=== PATIENT | female | born 1995 | race Caucasian/White ===

== ENCOUNTER → 2025-02-21 | Outpatient (CLI) | payer MEDICAID, SELFPAY ==
[2025-02-21 12:59] LABS: Absolute Lymphocyte Count 1.77 X10^3/uL (0.83-4.51); Absolute Neutrophil Count 3.2 X10^3/uL (2.0-7.7); Basophil# 0.09 X10^3/uL; Basophil% 1.5 % (0-1); Eosinophil# 0.22 X10^3/uL; Eosinophils% 3.7 % (0-5); Hematocrit 39.1 % (37-47); Hemoglobin 12.9 g/dL (12.0-15.0); Lymphocyte # 1.77 X10^3/ul (0.83-4.51); Lymphocyte % 29.7 % (19-41); Mean Corpuscular Hgb 31.6 pg (27.0-32.0); Mean Corpuscular Volume 95.8 fL (81-99); Mean Platelet Vol. 10.1 fl (6.2-12.0); Monocyte# 0.64 X10^3/uL; Monocyte% 10.8 % (0-10); NRBC Flagged by Analyzer 0 % (0-5); Neutrophil % 53.8 % (47-70); Platelet Count 387 K/mm3 (150-450); RBC Distribution Width CV 12.5 % (11.6-14.6); RBC Distribution Width SD 43.8 fl (35.1-43.9); Red Blood Count 4.08 M/mm3 (4.2-5.4)
[2025-02-21 13:15] LABS: Erythrocyte Sedimentation Rate < 1 mm/hr (0-30)
[2025-02-21 14:35] LABS: CRP < 3.00 mg/L (0.0-3.0)
== END | disposition home or self-care (01) ==
LOC: LAB 12:17 → PAVLAB 12:35
PROVIDERS: PCP Nurse Practitioner Family; Referring Provider Student in an Organized Health Care Education/Training Program; Visit Provider Student in an Organized Health Care Education/Training Program
DX: K51.90 Ulcerative colitis, unspecified, without complications (principal)
CPT/HCPCS: 36415; 85025; 85652; 86140

== ENCOUNTER 2025-02-22 11:32 | Day surgery (SDC) | payer MEDICAID, SELFPAY ==
[2025-02-22] VITALS (7 sets, daily range): BP systolic 101–130; BP diastolic 69–88; PULSE 53–90; RESP 16; TEMP 36.2–36.6; O2SAT 99–100; BMI 21.4
[2025-02-22] MEDS: Lactated Ringers 1,000 ML 15 ML IV (11:57)
--- NOTE | 2025-02-22 12:06 | PCM.PRE.AN2 ---
ASA Classification* ASA Classification ASA Classification: 2 Assessment & Plan Anesthesia* Anesthesia Assessment Anesthesia Assessment: Discussed sedation and/or anesthesia options, risks, benefits, and alternatives with patient/parents/legal guardian/POA. Questions invited. The patient/parents/legal guardian/POA seems to understand and agrees to proceed with anesthesia plan. Reviewed the physical assessment, medical history, allergy history and patient home medications list prior to surgery/procedure/anesthetic and documented any changes. Performed airway and anesthesia risk assessments. Anesthesia Type Anesthesia Type: MAC History Source History Obtained from:: Patient and Chart Anesthesia Focused Assessment* Temperature: 97.8 F Pulse Rate: 82 Blood Pressure: 109/88 Respiratory Rate: 16 Pulse Ox: 100 Oxygen Delivery Method: Room Air Airway Assessment Mouth opens: >3 cm Mallampati Score: II Teeth Condition: Chipped/Broken (Patient has a left upper molar which is broken off.) Neck Range of motion (ROM): Full ROM Focused Labs Anesthesia Preop lab: CBC WBC 6.0 K/mm3 (4.4-11.0) 02/21/25 12:41 02/21/25 RBC 4.08 M/mm3 (4.2-5.4) L 02/21/25 12:41 02/21/25 Hgb 12.9 g/dL (12.0-15.0) 02/21/25 12:41 02/21/25 Hct 39.1 % (37-47) 02/21/25 12:41 02/21/25 Plt Count 387 K/mm3 (150-450) 02/21/25 12:41 02/21/25 CHEMISTRY COAG Pre-Assessment Diagnosis/Proposed Procedure Planned Operative Procedure(s): EGD/CSCOPE Anesthesia History Anesthesia History - bi solutions architect: Anesthesia History - bi solutions architect Hx Hospitalization No 02/18/25 11:54 Any Problems With Anesthesia Yes: AWAKENED DURING 02/18/25 11:54 PROCEDURE Cholinesterase deficiency No 02/18/25 11:54 You/Your Family Experience No 02/18/25 11:54 fever (hyperthermia) with Relationship Recent Exposure to Contagious No 02/22/25 11:58 Disease Does patient have nerve No 02/18/25 11:54 stimulator Patient instructed to have device shut off --Does patient have Pacemaker No 02/22/25 11:58 or ICD? When Was Last Pacemaker Check QUESTION #4 FULL TEXT: You/Your Family Experience fever (hyperthermia) with Anesthesia Last Oral Intake Last Oral intake: Last Oral Intake NPO since 04:00 02/22/25 11:58 Meds taken in AM with sips of No 02/22/25 11:58 water? Meds patient instructed to take am of surgery Any additional information?: Yes NPO since: 04:00 (Patient has some water at 4 AM.) Meds taken in AM with sips of water?: No PONV PONV - bi solutions architect: PONV - bi solutions architect Female Yes 02/18/25 11:54 HX of Motion Sickness No 02/18/25 11:54 HX of N/V After Surgery No 02/18/25 11:54 Non-Smoker Yes 02/18/25 11:54 Duration of Surgery greater No 02/18/25 11:54 than 60 minutes Number of Risk Factors 2 02/18/25 11:54 PONV Score Moderate Risk 02/18/25 11:54 Height & Weight Height & Weight: Anesthesia: Height & Weight Height 5 ft 8 in 02/22/25 11:58 Weight: 64 kg 02/22/25 11:58 Body Mass Index (BMI) 21.4 02/22/25 11:58 Respiratory Assessment Respiratory Assessment - bi solutions architect: Respiratory Tract Infection Hx - bi solutions architect Hx Respiratory Tract Infection No 02/18/25 11:54 STOP Sleep Apnea STOP Sleep Apnea - bi solutions architect: STOP Sleep Apnea - bi solutions architect Hx Hypertension No 02/18/25 11:54 Hx Sleep Apnea No 02/18/25 11:54 CPAP BIPAP Do you snore loudly (louder No 02/18/25 11:54 than talking or can be heard Do you often feel tired/ Yes 02/18/25 11:54 fatigued/ sleepy during daytime? Has anyone observed you stop No 02/18/25 11:54 breathing during sleep? STOP Results Negative 02/18/25 11:54 QUESTION #5 FULL TEXT : Do you snore loudly (louder than talking or can be heard through closed doors)? Tobacco Use History Tobacco Use History - bi solutions architect: Tobacco Use History - bi solutions architect Tobacco Use Smoking Status Former smoker 02/18/25 11:54 Hx Tobacco Use No 02/18/25 11:54 Years Smoking Packs Smoked per Day Smoking Cessation Date was Yes - quit smoking within 15 02/18/25 11:54 within the last 15 years years Hx Smoking Cessation Date Hx Smoking Cessation No 02/18/25 11:54 Counseling Hematologic Medial History Hematologic Hx - bi solutions architect: Hematologic Medical Hx - research and development engineer Hx of Blood Transfusion No 02/18/25 11:54 Hx of Transfusion in last 3 No 02/18/25 11:54 Months Date of Last Transfusion (if within last 3 months) Ever experience any problems No 02/18/25 11:54 with transfusion(s)? Specify any problems Hx of Preganancy in last 3 No 02/18/25 11:54 Months Nurse Filling Out Transfusion DSCHRIBER 02/18/25 11:54 & Questions: Date: 02/18/25 02/18/25 11:54 Time: 11:55 02/18/25 11:54 Patient unable to answer at this time (ie. confused, unrespo /Reproduction History /Reproductive History - bi solutions architect: /Reproductive Hx- bi solutions architect Hx Now No 02/18/25 11:54 Gestational Age (in weeks): EDC: Hx Hx Para Hx Section SAB No 02/18/25 11:54 Active Medications Active Medications: Current Medications Generic Name Dose Route Start Last Admin Trade Name Freq PRN Reason Stop Dose Admin Lactated Ringer's 1,000 mls @ 15 mls/hr 02/22/25 11:45 02/22/25 11:57 IV 15 mls/hr .Q48H ELVIN Administration PFSH Medical History Anxiety History of steroid therapy Low iron Easy bruising Restless legs Back pain Injury of back Syncope Dietary restriction History of IBS Ulcerative proctitis Ulcerative colitis Gastric reflux Leg cramps Former smoker Chest pain Home Medications ?Medication ?Instructions ?Recorded ?Last Taken ?Type dextroamphetamine-amphetamine 10 30 mg PO BID 03/17/24 Unknown History mg tablet (Adderall) fexofenadine 180 mg tablet 180 mg PO DAILY 02/18/25 Unknown History vedolizumab 300 mg intravenous 300 mg IV .Q6 WEEKS 02/18/25 02/10/25 History solution (Entyvio) Allergy/AdvReac Type Severity Reaction Status Date / Time clindamycin Allergy Intermediate Nausea Verified 02/22/25 11:55 tenapanor (From Ibsrela) Allergy Intermediate Other Verified 02/22/25 11:55 doxycycline Allergy Hives Verified 02/22/25 11:55 tofacitinib (From Xeljanz) Allergy Hives Verified 02/22/25 11:55 codeine AdvReac itchiness Verified 02/22/25 11:55 Surgical History Hx of oral surgery H/O tubal ligation Social History household members: family Smoking Status: Former smoker quit date: 11/27/17 alcohol intake: never Review of Systems (Anesthesia) ROS Narrative System reviewed and no additional complaints, except as documented.
--- NOTE | 2025-02-22 12:30 | EGD_PTH ---
PATIENT: TRENT ZULUAGA LOC: EN U#:[id number] AGE/SX: 29/F ROOM: RE02/22/[address]: Dr. Anish Anguiano DO : 1995 BED: DIS: 02/22/2025 SPEC #: [id number] RECD: 02/23/25 08:52 STATUS: NANO RECecy #: [id number] KAREN: 02/22/25 12:[address]: Anish Anguiano DEPT: SURGICAL PATHOLOGY RECD BY: Luis Madrigal ENTERED: 02/23/25 11:01 SP TYPE: EGD BIOPSY CARMELO DR: SAWYER WILKINS, FIRE BATTALION CHIEF-C Tissues: Esophagus, NOS Rectum, NOS Procedures: Surgery Specimen Level IV HEADER OPERATION: Colonoscopy with biopsy, EGD with biopsy PRE-OP DIAGNOSIS: Colitis, ulcerative TISSUE SUBMITTED: Distal esophagus biopsy, Anal rectal junction biopsy MICROSCOPIC DIAGNOSIS A. Esophagus, distal, biopsy: * Benign squamous epithelium * Oxyntocardiac type mucosa with mild chronic inflammation, negative for goblet cells B. Anal-rectal junction, biopsy: * Mild active chronic colitis, negative for dysplasia COMMENT The patient's clinical history of ulcerative colitis is noted MICROSCOPIC DESCRIPTION Slides are reviewed. GROSS DESCRIPTION A. Received in formalin in a container labeled with the patient's name, date of , and distal esophagus biopsy are 2 madrid-pink fragments of mucosal tissue measuring 0.4 x 0.3 x 0.2 cm and 0.6 x 0.3 x 0.2 cm. Submitted in toto in A1. B. Received in formalin in a container labeled with the patient's name, date of , and anal rectal junction biopsy are 3 madrid-pink fragments of mucosal tissue each measuring 0.3 x 0.3 x 0.3 cm. Submitted in toto in B1. [facility] 02-23-2025 CPT:65483s1
--- NOTE | 2025-02-22 13:01 | PCM.HP.STD ---
HPI - General General Date of Admission: 02/22/25 Date of Service: 02/22/25 Chief Complaint: Abdominal pain and also colitis HPI Narrative TRENT ZULUAGA, is a 29 F who presents for the evaluation of abdominal pain and surveillance of ulcerative colitis. Pt was diagnosed with UC in 2018 after struggling for years with constipation, blood and mucous in her stool. She was put on steroids and suppositories. She is now on Entyvio since February 2024. SHe feels this has helped with some aspects of her symptoms but not all. She continues to have burning left sided abd pain intermittently that lasts an hour. She is constipated with a bm once every 1-2 weeks. She has tried Ibsrela but felt it led to psychosis so she discontinued. Last colonoscopy in Nov 2023 showing active pancolitis with ulceration and cobblestoning. She is also having heartburn. She was unable to have an EGD due to gagging in the past. [facility] Medical History Anxiety History of steroid therapy Low iron Easy bruising Restless legs Back pain Injury of back Syncope Dietary restriction History of IBS Ulcerative proctitis Ulcerative colitis Gastric reflux Leg cramps Former smoker Chest pain Home Medications ?Medication ?Instructions ?Recorded ?Last Taken ?Type dextroamphetamine-amphetamine 10 30 mg PO BID 03/17/24 Unknown History mg tablet (Adderall) fexofenadine 180 mg tablet 180 mg PO DAILY 02/18/25 Unknown History vedolizumab 300 mg intravenous 300 mg IV .Q6 WEEKS 02/18/25 02/10/25 History solution (Entyvio) Allergy/AdvReac Type Severity Reaction Status Date / Time clindamycin Allergy Intermediate Nausea Verified 02/22/25 11:55 tenapanor (From Ibsrela) Allergy Intermediate Other Verified 02/22/25 11:55 doxycycline Allergy Hives Verified 02/22/25 11:55 tofacitinib (From Xeljanz) Allergy Hives Verified 02/22/25 11:55 codeine AdvReac itchiness Verified 02/22/25 11:55 Surgical History Hx of oral surgery H/O tubal ligation Social History household members: family Smoking Status: Former smoker quit date: 11/27/17 alcohol intake: never ROS Constitutional Constitutional: Denies fatigue, fever(s), poor appetite, weight gain or weight loss Gastrointestinal Gastrointestinal: Denies belching, bloating, change in bowel habits, change in stool character, chewing difficulty, coffee ground emesis, constipation, cramping, diarrhea, dyspepsia, dysphagia, early satiety, excessive flatus, fecal incontinence, heartburn, hematemesis, hematochezia, hemorrhoids, loose stools, melena, nausea, odynophagia, rectal bleeding, tenesmus, vomiting or weight changes Vital Signs Vital Signs Vital Signs: 02/22/25 11:58 02/22/25 11:58 02/22/25 12:14 Temperature 97.8 F 97.8 F Temperature Source Temporal Pulse Rate 82 82 Respiratory Rate 16 16 Respiratory Pattern Normal Blood Pressure 109/88 H 109/88 H Blood Pressure Mean 95 Blood Pressure Source Monitor Blood Pressure Position Semi-Fowlers Blood Pressure Location Left Arm Pulse Ox 100 100 Oxygen Delivery Method Room Air Room Air Weight Weight: 141 lb 1.533 oz Body Mass Index (BMI) 21.4 Physical Exam Const alert, oriented x3, no apparent distress and healthy appearing General Appearance: cooperative GI normal to inspection, nondistended, normoactive bowel sounds, soft to palpation, non-tender and non-distended Percussion: normal to percussion Rectal Exam: deferred Assessment & Plan Assessment/Plan (1) Colitis, ulcerative: PLAN: Assessment and Plan Assessment and Plan (1) Colitis, ulcerative: Status: Acute Plan: Pt is a 29 yo female pt here today for evaluation of UC. Pt was diagnosed in 2018 after colonoscopy showing pancolitis. She has been on a myriad of medications and started on Entyvio in February 2024. She feels this has helped with the blood in mucous. SHe continues to have abd pain and constipation. She will undergo EGD and colonoscopy to assess if treatment is sufficient. I ordered CBC, ESR, CRP and calprotectin. For her constipation, she will trial samples of Linzess 72 mcg daily. -Colonoscopy and EGD -CBC -CRP and ESR -Calprotectin -Trial Linzess
--- NOTE | 2025-02-22 13:52 | OP.EGD_ITS ---
Patient Name: Lynsey Lynne Procedure Date: 02/22/2025 1:07 PM Date of : 1995 Age: 29 Procedure: Upper GI endoscopy Indications: Epigastric abdominal pain Providers: Anish Agnuiano DO Referring MD: Andrea Enriquez Medicines: Monitored Anesthesia Care Patient Profile: This is a 29 year old female. Refer to note in patient chart for documentation of history and physical. Patient has symptoms of chronic abdominal cramping and chronic epigastric abdominal pain. Complications: No immediate complications. Procedure: Pre-Anesthesia Assessment: - Prior to the procedure, a History and Physical was performed, and patient medications and allergies were reviewed. The patient is competent. The risks and benefits of the procedure and the sedation options and risks were discussed with the patient. All questions were answered and informed consent was obtained. Patient identification and proposed procedure were verified by the physician in the pre-procedure area. Mental Status Examination: alert and oriented. Airway Examination: normal oropharyngeal airway and neck mobility. Respiratory Examination: clear to auscultation. CV Examination: normal. Prophylactic Antibiotics: The patient does not require prophylactic antibiotics. Prior Anticoagulants: The patient has taken no anticoagulant or antiplatelet agents except for NSAID medication. ASA Grade Assessment: II - A patient with mild systemic disease. After reviewing the risks and benefits, the patient was deemed in satisfactory condition to undergo the procedure. The anesthesia plan was to use monitored anesthesia care (MAC). Immediately prior to administration of medications, the patient was re-assessed for adequacy to receive sedatives. The heart rate, respiratory rate, oxygen saturations, blood pressure, adequacy of pulmonary ventilation, and response to care were monitored throughout the procedure. The physical status of the patient was re-assessed after the procedure. After obtaining informed consent, the endoscope was passed under direct vision. Throughout the procedure, the patient's blood pressure, pulse, and oxygen saturations were monitored continuously. The Colonoscope was introduced through the mouth, and advanced to the third part of the duodenum. Small bowel enteroscopy was deemed necessary. The upper GI endoscopy was accomplished without difficulty. The patient tolerated the procedure well. Scope In: 1:17:46 PM Scope Out: 1:23:01 PM Total Procedure Duration Time 0 hours 5 minutes 15 seconds Findings: The Z-line was irregular and was found 40 cm from the incisors. Biopsies were taken with a cold forceps for histology. Verification of patient identification for the specimen was done. No gross lesions were noted in the stomach. The examined duodenum was normal. Impression: - Z-line irregular, 40 cm from the incisors. Biopsied. - No gross lesions in the stomach. - Normal examined duodenum. Recommendation: - Continue present medications. Procedure Code(s): --- Professional --- 16258, Small intestinal endoscopy, enteroscopy beyond second portion of duodenum, not including ileum; with biopsy, single or multiple CPT copyright 2021 [employer] [place] [employer]. All rights reserved. The codes documented in this report are preliminary and upon review assistant review may be revised to meet current compliance requirements. Anish Anguiano DO 02/22/2025 1:52:10 PM This report has been signed electronically. Number of Addenda: 0 Note Initiated On: 02/22/2025 1:07 PM
--- NOTE | 2025-02-22 13:52 | OP.CCLET_ITS ---
02/22/2025 Andrea Enriquez Re : Upper GI endoscopy procedure for Lynsey Powersr Jermaine This procedure was performed on Saturday, February 22, 2025. My impressions and recommendations are as follows: Impressions : - Z-line irregular, 40 cm from the incisors. Biopsied. - No gross lesions in the stomach. - Normal examined duodenum. Recommendations : - Continue present medications. My findings are described in the full procedure note, which is enclosed. If I can be of further assistance, please feel free to contact me at . Sincerely, Anish Anguiano, 02/22/2025 1:52:10 PM This report has been signed electronically.
--- NOTE | 2025-02-22 13:55 | PCM.POST.ANE ---
Anesthesia: Postop Eval I Current Vital Signs Temperature: 97.1 F Pulse Rate: 61 Blood Pressure: 117/80 Respiratory Rate: 16 Pulse Ox: 100 Oxygen Delivery Method: Room Air Assessment Airway patent: Yes Spontaneous unlabored respirations: Yes Mental status: Asleep nausea: No Vomiting: No Anesthesia Complication: No Fluid Hydration Crystalloid volume administer (ml): 900 Total IV fluid infused: 900 Progress Note Anesthesia document: Postop Eval 1 completed: Yes
--- NOTE | 2025-02-22 13:58 | OP.CCLET_ITS ---
02/22/2025 Andrea Enriquez Re : Colonoscopy procedure for Lynsey Dean This procedure was performed on Saturday, February 22, 2025. My impressions and recommendations are as follows: Impressions : - Preparation of the colon was fair. - Mild (Gonzalez Score 1) ulcerative colitis, improved since the last examination. Biopsied. - Stool in the transverse colon, at the hepatic flexure, in the ascending colon and in the cecum. - The examined portion of the ileum was normal. Recommendations : - Discharge patient to home. - Resume previous diet. - Continue present medications. - Await pathology results. - Repeat colonoscopy for surveillance based on pathology results. My findings are described in the full procedure note, which is enclosed. If I can be of further assistance, please feel free to contact me at . Sincerely, Anish Anguiano, 02/22/2025 1:58:18 PM This report has been signed electronically.
--- NOTE | 2025-02-22 13:58 | OP.COLON_ITS ---
Patient Name: Lynsey Lynne Procedure Date: 02/22/2025 1:23 PM Date of : 1995 Age: 29 Procedure: Colonoscopy Indications: Chronic ulcerative proctosigmoiditis Providers: Anish Anguiano DO Referring MD: Andrea Enriquez Medicines: Monitored Anesthesia Care Patient Profile: This is a 29 year old female. Refer to note in patient chart for documentation of history and physical. Patient has symptoms of chronic abdominal cramping and chronic epigastric abdominal pain. Last Colonoscopy: within the past 3 years. Complications: No immediate complications. Procedure: Pre-Anesthesia Assessment: - Prior to the procedure, a History and Physical was performed, and patient medications and allergies were reviewed. The patient is competent. The risks and benefits of the procedure and the sedation options and risks were discussed with the patient. All questions were answered and informed consent was obtained. Patient identification and proposed procedure were verified by the physician in the pre-procedure area. Mental Status Examination: alert and oriented. Airway Examination: normal oropharyngeal airway and neck mobility. Respiratory Examination: clear to auscultation. CV Examination: normal. Prophylactic Antibiotics: The patient does not require prophylactic antibiotics. Prior Anticoagulants: The patient has taken no anticoagulant or antiplatelet agents except for NSAID medication. ASA Grade Assessment: II - A patient with mild systemic disease. After reviewing the risks and benefits, the patient was deemed in satisfactory condition to undergo the procedure. The anesthesia plan was to use monitored anesthesia care (MAC). Immediately prior to administration of medications, the patient was re-assessed for adequacy to receive sedatives. The heart rate, respiratory rate, oxygen saturations, blood pressure, adequacy of pulmonary ventilation, and response to care were monitored throughout the procedure. The physical status of the patient was re-assessed after the procedure. After I obtained informed consent, the scope was passed under direct vision. Throughout the procedure, the patient's blood pressure, pulse, and oxygen saturations were monitored continuously. The Colonoscope was introduced through the anus and advanced to the terminal ileum. The colonoscopy was performed without difficulty. The patient tolerated the procedure well. The quality of the bowel preparation was fair. The ileocecal valve, appendiceal orifice, and rectum were photographed. Scope In: 1:25:54 PM Scope Withdrawal Time 0 hours 9 minutes 26 seconds Scope Out: 1:44:04 PM Total Procedure Duration Time 0 hours 18 minutes 10 seconds Findings: The perianal and digital rectal examinations were normal. Inflammation was found as patches surrounded by normal mucosa in the anus and in the rectum. This was graded as Gonzalez Score 1 (mild, with erythema, decreased vascular pattern, mild friability), and when compared to the previous examination, the findings are improved. Biopsies were taken with a cold forceps for histology. Verification of patient identification for the specimen was done. Estimated blood loss was minimal. Stool was found in the transverse colon, at the hepatic flexure, in the ascending colon and in the cecum. The terminal ileum appeared normal. Impression: - Preparation of the colon was fair. - Mild (Gonzalez Score 1) ulcerative colitis, improved since the last examination. Biopsied. - Stool in the transverse colon, at the hepatic flexure, in the ascending colon and in the cecum. - The examined portion of the ileum was normal. Recommendation: - Discharge patient to home. - Resume previous diet. - Continue present medications. - Await pathology results. - Repeat colonoscopy for surveillance based on pathology results. Procedure Code(s): --- Professional --- 46964, Colonoscopy, flexible; with biopsy, single or multiple CPT copyright 2021 [employer]. All rights reserved. The codes documented in this report are preliminary and upon fur blower operator review may be revised to meet current compliance requirements. Anish Anguiano DO 02/22/2025 1:58:18 PM This report has been signed electronically. Number of Addenda: 0 Note Initiated On: 02/22/2025 1:23 PM
--- NOTE | 2025-02-22 16:52 | PCM.POSTANE2 ---
Anesthesia Postop Eval I Sum Postop Eval Completion status Anesthesia document: Postop Eval 1 completed: Yes Anesthesia Postop Eval I Summary Anesthesia Postop Eval I Summary: Anesthesia Postop Eval I: Assessment Summary Airway patent Yes 02/22/25 13:55 [email or web address] Spontaneous unlabored Yes 02/22/25 13:55 [email or web address] respirations Mental status Asleep 02/22/25 13:55 [email or web address] nausea No 02/22/25 13:55 [email or web address] Vomiting No 02/22/25 13:55 [email or web address] Anesthesia Postop Eval I: Fluid Summary Crystalloid volume administer 900 02/22/25 13:55 [email or web address] (ml) Colloids volume administered ( ml) Blood Product volume administered (ml) Total IV fluid infused 900 02/22/25 13:55 [email or web address] Anesthesia Postop Eval I: Summary Notes Anesthesia Complication No 02/22/25 13:55 [email or web address] Anesthesia Complication Comment: Post-operative progress note Anesthesia: Postop Eval II Evaluation Mental status: Awake and Calm Pain Level: 0 nausea: No Vomiting: No Complications Anesthesia Complication: No
== END 2025-02-22 14:42 | disposition home or self-care (01) ==
LOC: EN 11:33 → AC 11:34
PROVIDERS: PCP Nurse Practitioner Family; Referring Provider Nurse Practitioner Family; Visit Provider Internal Medicine Gastroenterology
PROC: 0DJD8ZZ Inspection of Lower Intestinal Tract, Via Natural or Artificial Opening Endoscopic (ICD-10-PCS; CPT 45378; principal; 2025-02-22 12:25)
DX: K51.30 Ulcerative (chronic) rectosigmoiditis without complications (principal); K59.09 Other constipation; G89.29 Other chronic pain; K21.9 Gastro-esophageal reflux disease without esophagitis; F41.9 Anxiety disorder, unspecified; Z79.620 Long term (current) use of immunosuppressive biologic; Z79.899 Other long term (current) drug therapy; Z87.891 Personal history of nicotine dependence
CPT/HCPCS: 45380; 44361; 88305; J2405

== ENCOUNTER → 2025-06-21 | Outpatient (CLI) | payer MEDICAID, SELFPAY ==
[2025-06-21 11:54] LABS: Hematocrit 36.1 % (37-47); Hemoglobin 12.0 g/dL (12.0-15.0); Immature Granulocytes Count 0.100 X10^3/uL (0.0-0.0); Mean Corp Hgb Conc 33.2 g/dL (32-36); Mean Corpuscular Volume 95.0 fL (81-99); Mean Platelet Vol. 10.9 fl (6.2-12.0); NRBC Flagged by Analyzer 0 % (0-5); POSITIVE MORPHOLOGY YES; Platelet Count 377 K/mm3 (150-450); RBC Distribution Width CV 12.5 % (11.6-14.6); RBC Distribution Width SD 43.4 fl (35.1-43.9); Red Blood Count 3.80 M/mm3 (4.2-5.4); White Blood Count 6.1 K/mm3 (4.4-11.0)
[2025-06-21 12:02] LABS: Differential Indicated SCAN CRITERIA MET
[2025-06-21 13:06] LABS: AST(SGOT) 15 U/L (<=31); Alanine Aminotransfer ALT/SGPT 11 U/L (<=34); Albumin, Serum 4.2 g/dL (3.5-5.0); Alkaline Phosphatase 53 U/L (35-104); Anion Gap 10 (5-15); BUN 10 mg/dL (4-19); BUN/Creat Ratio 14.5 RATIO (10-20); Calcium,Total 9.0 mg/dL (7.6-11.0); Carbon Dioxide 22.7 mmol/L (21.0-32.0); Chloride 108 mmol/L (98-108); Globulin 2.4 g/dL (2.2-4.2); Glucose 87 mg/dL (70-99); Potassium 4.2 mmol/L (3.3-5.1)
== END | disposition home or self-care (01) ==
LOC: LAB 11:12
PROVIDERS: PCP Nurse Practitioner Family; Referring Provider Student in an Organized Health Care Education/Training Program; Visit Provider Student in an Organized Health Care Education/Training Program
DX: K51.90 Ulcerative colitis, unspecified, without complications (principal); K59.00 Constipation, unspecified
CPT/HCPCS: 36415; 80053; 85025